=== PATIENT | female | born 1990 | race Caucasian/White ===

== ENCOUNTER 2017-04-17 21:03 | Inpatient (IN) | payer SELFPAY ==
[2017-04-18] MEDS ORDERED: fentaNYL 100 MCG/2 ML SDV EPIDUR PRN (00:28)
[2017-04-18] MEDS ORDERED: Ondansetron 4 MG/2 ML SDV IVPUSH PRN (00:28)
[2017-04-18] MEDS ORDERED: ePHEDrine 50 MG/ML SDV IVPUSH PRN (00:28)
[2017-04-18] MEDS ORDERED: Oxytocin/Lactated Ringers 10 UNIT/1,000 ML BAG IV SCH (00:30)
[2017-04-18] MEDS ORDERED: Bupivacaine/fentaNYL/NS 100 ML Bag EPIDUR SCH (00:30)
--- NOTE | 2017-04-18 00:30 | PCM.PREANE ---
Preanesthetic Assessment - Anesthesia/Transfusion/Family Hx Anesthesia History: Prior Anesthesia Without Reaction Family History of Anesthesia Reaction: No Transfusion History: No Prior Transfusion(s) Intubation History: Unknown - Review of Systems General: No Symptoms Pulmonary: No Symptoms Cardiovascular: No Symptoms Gastrointestinal: No Symptoms (GERD) Neurological: No Symptoms Other: Reports: None, Easy Bruising - Physical Assessment NPO Status Date: 04/18/17 NPO Status Time: 00:01 Pulse: 99 O2 Sat by Pulse Oximetry: 98 Respiratory Rate: 12 Blood Pressure: 118/78 Temperature: 37.0 C Height: 1.55 m Weight: 70.942 kg ASA Class: 2 Mental Status: Alert & Oriented x3 Airway Class: Mallampati = 2 Dentition: Reports: Normal Dentition, Caries Thyro-Mental Finger Breadths: 3 Mouth Opening Finger Breadths: 3 ROM/Head Extension: Full Lungs: Clear to Auscultation, Normal Respiratory Effort Cardiovascular: Regular Rate, Regular Rhythm, No Murmurs - Lab Values: Labs reviewed and noted and acceptable range to proceed with epidural. ( Platelets = 263,000) - Allergies Allergies/Adverse Reactions: Allergies Allergy/AdvReac Type Severity Reaction Status Date / Time No Known Allergies Allergy Verified 07/20/14 22:24 - Anesthesia Plan Pre-Op Medication Ordered: None - Acknowledgements Anesthesia Type Planned: Epidural Pt an Appropriate Candidate for the Planned Anesthesia: Yes Alternatives and Risks of Anesthesia Discussed w Pt/Guardian: Yes Pt/Guardian Understands and Agrees with Anesthesia Plan: Yes PreAnesthesia Questionnaire - SUBSTANCE USE Smoking Status *Q: Never Smoker Second Hand Smoke Exposure: No Days Per Week of Alcohol Use: 0 Recreational Drug Use History: No - HOME MEDS Home Medications: Home Meds Vit No.129/Iron/FA [ Tablet] 1 each PO DAILY 03/15/17 [History] - CURRENT (IN HOUSE) MEDS Current Meds: Current Medications Ephedrine Sulfate (Ephedrine Sulfate) 5 mg IVPUSH ASDIRECTED PRN PRN Reason: Hypotension Fentanyl (Sublimaze) 100 mcg EPIDUR Q3H PRN PRN Reason: Pain Fentanyl/Bupivacaine HCl (Fentanyl/Bupivacaine/Ns 2 Mcg-0.125% 100 Ml) 100 ml EPIDUR ASDIRECTED RAOUL Lactated Ringer's (Ringers, Lactated) 1,000 mls @ 100 mls/hr IV ASDIRECTED RAOU[facility] Oxytocin/Lactated Ringer's (Pitocin In Lr 10 Units/1,000 Ml) 10 unit in 1,000 mls @ 500 mls/hr IV ASDIRECTED [facility] Ondansetron HCl (Zofran) 4 mg IVPUSH ONETIME PRN PRN Reason: Nausea/Vomiting
[2017-04-18] MEDS: Lactated Ringers 1,000 ML IV SCH ×3 (00:58→02:19)
--- NOTE | 2017-04-18 04:34 | PCM.LDHP ---
L&D History of Present Illness - General Date of Service: 04/17/17 Admit Problem/Dx: Patient Status Order with Admit Dx/Problem 04/18/17 00:17 Patient Status [ADT] Routine Admission Diagnosis/Problem Admission Diagnosis/Problem Source of Information: Care Home Records - History of Present Illness Introduction:: 26 year old at 38w4d here with painful contractions and some bloody show. Cervical change from 3 in clinic to 4 here and then 5 cm. Active labor. PNC with myself without complications. 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 & Family History - Family History Family Medical History: Noncontributory - Tobacco Use Smoking Status *Q: Never Smoker Second Hand Smoke Exposure: No - Caffeine Use Caffeine Use: Reports: None - Alcohol Use Days Per Week of Alcohol Use: 0 - Recreational Drug Use Recreational Drug Use: No H&P Review of Systems - Review of Systems: Review Of Systems: See Below General: Reports: No Symptoms HEENT: Reports: No Symptoms Pulmonary: Reports: No Symptoms Cardiovascular: Reports: No Symptoms Gastrointestinal: Reports: No Symptoms Genitourinary: Denies: Dysuria, Frequency Musculoskeletal: Reports: No Symptoms Skin: Reports: No Symptoms Psychiatric: Reports: No Symptoms Neurological: Reports: No Symptoms Hematologic/Lymphatic: Reports: No Symptoms Immunologic: Reports: No Symptoms L&D Exam - Exam Exam: See Below - Vital Signs Vital Signs: Last Vital Signs Temp 37.0 C 04/18/17 00:59 Pulse 99 04/18/17 00:59 Resp 12 04/18/17 00:59 BP 118/78 04/18/17 00:59 Pulse Ox 98 04/18/17 00:59 Weight: 70.942 kg - OB Specific Contraction Intensity: Moderate to Strong Movement: Active Heart Tones: Present Heart Rate (FHR) Variability: Moderate (6-25 bmp) Presentation: Vertex - Nolasco Score Nolasco Score Cervix Position: Anterior Nolasco Score Consistency: Soft Nolasco Score Dilation: > 5 cm Nolasco Score 's Station: -2 - Exam General: Alert, Oriented HEENT: PERRLA, Conjunctiva Clear, EACs Clear, EOMI, Hearing Intact, Mucosa Moist & [place], Nares Patent, Normal Nasal Septum, Posterior Pharynx Clear, TMs Clear Neck: Supple, Trachea Midline Lungs: Clear to Auscultation, Normal Respiratory Effort Cardiovascular: Regular Rate, Regular Rhythm GI/Abdominal Exam: Normal Bowel Sounds, Soft, Non-Tender, No Organomegaly, No Distention, No Abnormal Bruit, No Mass, Pelvis Stable Genitourinary: Normal external exam, Normal bimanual exam, Normal speculum exam Back Exam: Normal Inspection, Full Range of Motion Extremities: Normal Inspection, Normal Range of Motion, Non-Tender, No Pedal Edema, Normal Capillary Refill Skin: Warm, Dry, Intact Neurological: Cranial Nerves Intact, Reflexes Equal Bilateral Psychiatric: Alert, Normal Affect, Normal Mood - Patient Data Lab Results Last 24 hrs: Laboratory Results - last 24 hr 04/18/17 Range/Units 00:33 WBC 12.19 H (3.98-10.04) K/mm3 RBC 4.01 (3.98-5.22) M/mm3 Hgb 12.5 (11.2-15.7) gm/L Hct 36.9 (34.1-44.9) % MCV 92.0 (79.4-94.8) fl MCH 31.2 (25.6-32.2) pg MCHC 33.9 (32.2-35.5) g/dl RDW Std Deviation 47.1 H (36.4-46.3) fL Plt Count 263 (182-369) K/mm3 MPV 10.2 (9.4-12.3) fl Neut % (Auto) 74.3 H (34.0-71.1) % Lymph % (Auto) 18.0 L (19.3-51.7) % [place] % (Auto) 6.6 (4.7-12.5) % Eos % (Auto) 0.7 (0.7-5.8) Baso % (Auto) 0.2 (0.1-1.2) % Neut # (Auto) 9.06 H (1.56-6.13) K/mm3 Lymph # (Auto) 2.19 (1.18-3.74) K/mm3 [place] # (Auto) 0.81 H (0.24-0.36) K/mm3 Eos # (Auto) 0.08 (0.04-0.36) K/mm3 Baso # (Auto) 0.03 (0.01-0.08) K/mm3 Result Diagrams: 04/18/17 00:33 Problem List Initiated/Reviewed/Updated: Yes Orders Last 24hrs: Active Orders 24 hr Category Date Time Status Patient Status [ADT] Routine ADT 04/18/17 00:17 Active Activity as Tolerated [RC] PFP Care 04/18/17 00:17 Active Communication Order [RC] ASDIRECTED Care 04/18/17 00:17 Active Heart Tones [RC] ASDIRECTED Care 04/18/17 00:18 Active Notify Provider [RC] ASDIRECTED Care 04/18/17 00:28 Active Notify Provider [RC] PFP Care 04/18/17 00:17 Active Notify Provider [RC] PRN Care 04/18/17 00:17 Active Oxygen Therapy [RC] ASDIRECTED Care 04/18/17 00:28 Active Peripheral IV Care [RC] . DIRECTED Care 04/18/17 00:18 Active Pulse Oximetry [RC] ASDIRECTED Care 04/18/17 00:28 Active Vital Signs [RC] PER UNIT ROUTINE Care 04/18/17 00:17 Active Clear Liquid Diet [DIET] Diet 04/18/17 Breakfast Active Bupivacaine/fentaNYL/NS [fentaNYL/Bupivacaine/NS 2 MCG- Med 04/18/17 00:30 Active 0.125% 100 ML] 100 ml EPIDUR ASDIRECTED Lactated Ringers [Ringers, Lactated] 1,000 ml Med 04/18/17 00:30 Active IV ASDIRECTED Ondansetron [Zofran] Med 04/18/17 00:28 Active 4 mg IVPUSH ONETIME PRN Oxytocin/Lactated Ringers [Pitocin in LR 10 Units/1,000 Med 04/18/17 00:30 Active ML] 10 unit in 1,000 ml IV ASDIRECTED ePHEDrine [ePHEDrine Sulfate] Med 04/18/17 00:28 Active 5 mg IVPUSH ASDIRECTED PRN fentaNYL [Sublimaze] Med 04/18/17 00:28 Active 100 mcg EPIDUR Q3H PRN Electronic Heart Tones Ext w TOCO [WOMSER] Oth 04/18/17 00:17 Ordered Routine Electronic Heart Tones Internal [WOMSER] Per Unit Oth 04/18/17 00:17 Ordered Routine Peripheral IV Insertion Adult [OM.PC] Routine Oth 04/18/17 00:17 Ordered Resuscitation Status Routine Resus Stat 04/18/17 00:17 Ordered Medication Orders Ephedrine Sulfate (Ephedrine Sulfate) 5 mg IVPUSH ASDIRECTED PRN PRN Reason: Hypotension Fentanyl (Sublimaze) 100 mcg EPIDUR Q3H PRN PRN Reason: Pain Last Admin: 04/18/17 01:02 Dose: 100 mcg Fentanyl/Bupivacaine HCl (Fentanyl/Bupivacaine/Ns 2 Mcg-0.125% 100 Ml) 100 ml EPIDUR ASDIRECTED [facility] Last Admin: 04/18/17 01:02 Dose: 100 ml Lactated Ringer's (Ringers, Lactated) 1,000 mls @ 100 mls/hr IV ASDIRECTED [facility] Last Admin: 04/18/17 02:19 Dose: 250 mls/hr Infusion: 04/18/17 02:19 Dose: 999 mls/hr Admin: 04/18/17 01:32 Dose: 999 mls/hr Infusion: 04/18/17 01:32 Dose: 999 mls/hr Infusion: 04/18/17 00:59 Dose: 999 mls/hr Admin: 04/18/17 00:58 Dose: 100 mls/hr Oxytocin/Lactated Ringer's (Pitocin In Lr 10 Units/1,000 Ml) 10 unit in 1,000 mls @ 500 mls/hr IV ASDIRECTED [facility] Ondansetron HCl (Zofran) 4 mg IVPUSH ONETIME PRN PRN Reason: Nausea/Vomiting Last Admin: 04/18/17 03:28 Dose: 4 mg Assessment/Plan Comment:: Term labor -Admit, cbc, IVF, epidural Anticipate AROM
--- NOTE | 2017-04-18 04:50 | PCM.SN ---
- Free Text/Narrative Note: 26 year old now3 female. of viable male 3400g apgars 8/9 over intact perineum at 0417. Placenta delivered spontaneously and intact. EBL 150
[2017-04-18] MEDS ORDERED: Lanolin 100% Cream 7 GM Tube TOP PRN (08:05)
[2017-04-18] MEDS ORDERED: Witch Hazel Medicated Pads 100/Jar TOP PRN (08:05)
[2017-04-18] MEDS ORDERED: Benzocaine/Menthol 20%-0.5% Spray 56 GM Canister TOP PRN (08:05)
[2017-04-18] MEDS ORDERED: Hydrocortisone Acetate 25 MG Supp RECTAL PRN (08:05)
--- NOTE | 2017-04-18 09:43 | PCM48HPAN ---
Post Anesthesia Note - EVALUATION WITHIN 48HRS OF ANESTHETIC Vital Signs in Normal Range: Yes Patient Participated in Evaluation: Yes Respiratory Function Stable: Yes Airway Patent: Yes Cardiovascular Function Stable: Yes Hydration Status Stable: Yes Pain Control Satisfactory: Yes Nausea and Vomiting Control Satisfactory: Yes Mental Status Recovered: Yes
[2017-04-18] MEDS: Ibuprofen 600 MG Tab PO PRN ×2 (11:34→17:16)
[2017-04-18] MEDS: Acetaminophen 325 MG Tab PO PRN ×2 (15:22→22:05)
[2017-04-18] MEDS ORDERED: Bupivacaine 0.25% 10 ML SDV ONE (22:22)
[2017-04-19 07:52] VITALS: BP 106/53
--- NOTE | 2017-04-19 09:03 | PCM.DCSUM1 ---
Discharge Summary - Discharge Data Discharge Date: 04/19/17 Discharge Disposition: Home, Self-Care 01 Condition: Good - Patient Summary/Data Hospital Course: Admitted for active labor. Progressed to complete and uncomplicated . Uncomplicated course. - Patient Instructions Diet: Usual Diet as Tolerated Activity: No Strenuous Activities Driving: May Drive Today Showering/Bathing: May Shower Wound/Incision Care: Keep Operative Site/Wound Site Clean and Dry Notify Provider of: Fever, Increased Pain, Swelling and Redness, Drainage, Nausea and/or Vomiting - Discharge Plan Home Medications: Home Meds Vit No.129/Iron/FA [ Tablet] 1 each PO DAILY 03/15/17 [History] Referrals: Elly Campbell MD [Primary Care Provider] - (6 weeks) - General Info Date of Service: 04/19/17 Functional Status: Reports: Pain Controlled - Review of Systems General: Reports: No Symptoms HEENT: Reports: No Symptoms Pulmonary: Reports: No Symptoms Cardiovascular: Reports: No Symptoms Gastrointestinal: Reports: No Symptoms Genitourinary: Reports: No Symptoms Musculoskeletal: Reports: No Symptoms Skin: Reports: No Symptoms Neurological: Reports: No Symptoms Psychiatric: Reports: No Symptoms - Patient Data Vitals - Most Recent: Last Vital Signs Temp 36.8 C 04/19/17 05:47 Pulse 73 04/19/17 05:47 Resp 20 04/19/17 05:47 BP 106/53 L 04/19/17 05:47 Pulse Ox 97 04/19/17 05:47 Weight - Most Recent: 70.942 kg I&O - Last 24 hours: Intake & Output 04/18/17 04/19/17 04/19/17 22:59 06:59 14:59 Intake Total 0 1 Balance 0 1 Lab Results - Last 24 hrs: Laboratory Results - last 24 hr 04/18/17 Range/Units 18:40 Blood Type O NEGATIVE Gel Antibody Screen Positive Screen 0 ros/5 flds - neg RhIG Candidate? Yes Rhogam Indicated Yes, baby rh pos H Med Orders - Current: Current Medications Acetaminophen (Tylenol) 650 mg PO Q6H PRN PRN Reason: Pain Last Admin: 04/18/17 22:05 Dose: 650 mg Benzocaine/Menthol (Dermoplast Pain Relief [place]) 0 gm TOP ASDIRECTED PRN PRN Reason: Perineal Comfort Measure Emollient Ointment (Lansinoh Hpa) 0 gm TOP ASDIRECTED PRN PRN Reason: Sore Nipples Hydrocortisone Acetate (Anucort-Hc) 25 mg RECTAL BID PRN PRN Reason: Hemorrhoid pain Ibuprofen (Motrin) 600 mg PO Q6H PRN PRN Reason: Mild pain or fever Last Admin: 04/18/17 17:16 Dose: 600 mg [place] (Tucks) 1 pad TOP ASDIRECTED PRN PRN Reason: Hemorrhoid pain Discontinued Medications Bupivacaine HCl (Sensorcaine-Mpf 0.25%) 10 ml .ROUTE .STK-MED ONE Stop: 04/18/17 22:23 Ephedrine Sulfate (Ephedrine Sulfate) 5 mg IVPUSH ASDIRECTED PRN PRN Reason: Hypotension Fentanyl (Sublimaze) 100 mcg EPIDUR Q3H PRN PRN Reason: Pain Last Admin: 04/18/17 01:02 Dose: 100 mcg Fentanyl/Bupivacaine HCl (Fentanyl/Bupivacaine/Ns 2 Mcg-0.125% 100 Ml) 100 ml EPIDUR ASDIRECTED [facility] Last Admin: 04/18/17 01:02 Dose: 100 ml Lactated Ringer's (Ringers, Lactated) 1,000 mls @ 100 mls/hr IV ASDIRECTED [facility] Last Admin: 04/18/17 02:19 Dose: 250 mls/hr Oxytocin/Lactated Ringer's (Pitocin In Lr 10 Units/1,000 Ml) 10 unit in 1,000 mls @ 500 mls/hr IV ASDIRECTED [facility] Ondansetron HCl (Zofran) 4 mg IVPUSH ONETIME PRN PRN Reason: Nausea/Vomiting Last Admin: 04/18/17 03:28 Dose: 4 mg - Exam General: Reports: Alert, Oriented HEENT: Reports: Pupils Equal, Pupils Reactive, EOMI, Mucous Membr. Moist/[place] Neck: Reports: Supple Lungs: Reports: Clear to Auscultation, Normal Respiratory Effort Cardiovascular: Reports: Regular Rate, Regular Rhythm GI/Abdominal Exam: Normal Bowel Sounds, Soft, Non-Tender, No Organomegaly, No Distention, No Abnormal Bruit, No Mass, Pelvis Stable Back Exam: Reports: Normal Inspection, Full Range of Motion Extremities: Normal Inspection, Normal Range of Motion, Non-Tender, No Pedal Edema, Normal Capillary Refill Skin: Reports: Warm, Dry, Intact Wound/Incisions: Reports: Healing Well Neurological: Reports: No New Focal Deficit Psy/Mental Status: Reports: Alert, Normal Affect, Normal Mood *Q Meaningful Use (DIS) - VTE *Q VTE Criteria *Q: - Stroke *Q Stroke Criteria *Q: - AMI *Q AMI Criteria *Q:
== END 2017-04-19 11:45 | disposition home or self-care (01) | DRG 775 ==
LOC: JD.OBCHECK 21:03 → JD.OB 21:08 → JD.OBCHECK 04-18 00:33 → JD.OB 04-18 00:34 → OBSVTOIN 04-18 04:17
PROVIDERS: ADMIT Obstetrics & Gynecology; ATTEND Obstetrics & Gynecology
PROC: 10E0XZZ Delivery of Products of Conception, External Approach (ICD-10-PCS; principal; 2017-04-18)
PROC: 10907ZC Drainage of Amniotic Fluid, Therapeutic from Products of Conception, Via Natural or Artificial Opening (ICD-10-PCS; 2017-04-18)
PROC: 00HU33Z Insertion of Infusion Device into Spinal Canal, Percutaneous Approach (ICD-10-PCS; 2017-04-18)
PROC: 3E0R3CZ (ICD-10-PCS; 2017-04-18)
DX: O80 Encounter for full-term uncomplicated delivery (principal); Z3A.39 39 weeks gestation of pregnancy; Z37.0 Single live birth
CPT/HCPCS: 01967; 36415; 85025; 85461; 86850; 86870; 86900; 86901; A9270-GY; J2405; J2790; J3010; J7120

== ENCOUNTER 2019-11-30 18:55 | Emergency (ER) | payer SELFPAY ==
[2019-11-30 19:07] VITALS: BP 126/82; PULSE 84
[2019-11-30] MEDS ORDERED: Lidocaine 1% 10 ML MDV INJECT ONE (19:08)
[2019-11-30] MEDS ORDERED: Diphtheria,Pertussis(Acell),Tetanus Vaccine 0.5 ML Syringe IM ONE (20:09)
--- NOTE | 2019-11-30 20:12 | EDM.PDOC ---
ED HPI GENERAL MEDICAL PROBLEM - General Chief Complaint: Laceration Stated Complaint: LACERATION TO FINGER Time Seen by Provider: 11/30/19 19:04 Source of Information: Reports: Patient History Limitations: Reports: No Limitations - History of Present Illness INITIAL COMMENTS - FREE TEXT/NARRATIVE: Patient is a 29-year-old female who presents with complaints of a laceration to the tip of her left middle finger. States she was cutting bread and she did not move her finger out of the way and cut it with a bread knife. She is unsure of when her last tetanus vaccination was. Left Finger-Middle Pain Score (Numeric/FACES): 9 - Related Data Allergies Allergy/AdvReac Type Severity Reaction Status Date / Time No Known Allergies Allergy Verified 07/20/14 22:24 Home Meds: Home Meds . 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 ED EXAM, SKIN/RASH Exam: See Below Exam Limited By: No Limitations General Appearance: Alert, WD/WN, No Apparent Distress Respiratory/Chest: No Respiratory Distress, Lungs Clear, Normal Breath Sounds, No Accessory Muscle Use, Chest Non-Tender Cardiovascular: Normal Peripheral Pulses, Regular Rate, Rhythm, No Edema, No Gallop, No JVD, No Murmur, No Rub Skin: Other (1 cm U-shaped laceration to the tip of the left middle finger. Mild bleeding noted.) ED SKIN PROCEDURES - Laceration/Wound Repair Left Distal Digit - 3rd (Middle) Appearance: Subcutaneous Distal NVT: Neuro & Vascular Intact Anesthetic Type: Local Local Anesthesia - Lidocaine (Xylocaine): 1% Plain Local Anesthetic Volume: 2cc Skin Prep: Chlorhexidine (Hibiciens), Providone-Iodine (Betadine), Saline Exploration/Debridement/Repair: Wound Explored, Multiple Flaps Aligned Closed with: Sutures Lac/Wound length In cm: 1 Suture Size: 4-0 # of Sutures: 3 Suture Type: Nylon Sterile Dressing Applied: Provider Tetanus Status Addressed: Yes Complications: Yes Course - Vital Signs Last Recorded V/S: Last Vital Signs Temp 98.3 F 11/30/19 19:05 Pulse 84 11/30/19 19:05 Resp 20 11/30/19 19:05 BP 126/82 11/30/19 19:05 Pulse Ox 98 11/30/19 19:05 - Orders/Labs/Meds Meds: Medications Discontinued Medications Generic Name Dose Route Start Last Admin Trade Name Paty PRN Reason Stop Dose Admin Lidocaine HCl 10 ml 11/30/19 19:08 11/30/19 19:24 Xylocaine 1% INJECT 11/30/19 19:09 10 ml ONETIME ONE Administration Departure - Departure Time of Disposition: 20:11 Disposition: Home, Self-Care 01 Condition: Good Clinical Impression: Finger laceration Qualifiers: Encounter type: initial encounter Finger: middle finger Damage to nail status: without damage Foreign body presence: without foreign body Laterality: left Qualified Code(s): S61.213A - Laceration without foreign body of left middle finger without damage to nail, initial encounter - Discharge Information Instructions: Laceration Care, Adult, Sutures, [place], or Adhesive Wound Closure, [id number] Referrals: PCP,None [Primary Care Provider] - Additional Instructions: You were seen in the emergency department today for a laceration to your left middle finger. The wound was cleaned and closed with 3 sutures. It should be kept clean and dry. You may wash it twice daily with normal soap and water. You may shower as normal. Do not submerge your hand in water. Watch for signs of infection including increased redness, swelling, purulent drainage. If these should occur, he should be seen in the clinic or return to ER as needed. I would recommend that you call to schedule a nurse visit to have the sutures removed in 7 days. You did receive a tetanus vaccination today so you are up-to -date for 10 years. Sepsis Event Note - Evaluation Sepsis Screening Result: No Definite Risk - Focused Exam Vital Signs: Vital Signs Temp Pulse Resp BP Pulse Ox 11/30/19 19:05 98.3 F 84 20 126/82 98 Date Exam was Performed: 11/30/19 Time Exam was Performed: 20:09
== END 2019-11-30 20:37 | disposition home or self-care (01) ==
LOC: JD.ED 18:55
DX: S61.213A Laceration without foreign body of left middle finger without damage to nail, initial encounter (principal); Z23 Encounter for immunization; W26.0XXA Contact with knife, initial encounter
CPT/HCPCS: 12001; 90471; 90715; 99282; J2001

== ENCOUNTER 2021-03-09 07:06 | Inpatient (IN) | payer BC ==
[2021-03-09] MEDS ORDERED: Nalbuphine 10 MG/1 ML Vial IVPUSH PRN (07:15)
[2021-03-09] MEDS ORDERED: Oxytocin/Lactated Ringers 10 UNIT/1,000 ML BAG IV SCH ×2 (07:15)
[2021-03-09] MEDS ORDERED: Ondansetron 4 MG/2 ML SDV IVPUSH PRN ×2 (07:15→09:26)
[2021-03-09] MEDS ORDERED: Sodium Chloride 0.9% 10 ML Syringe FLUSH PRN (07:15)
[2021-03-09] MEDS: Lactated Ringers 1,000 ML IV SCH ×3 (07:59→11:31)
[2021-03-09] MEDS ORDERED: ePHEDrine 50 MG/ML SDV IVPUSH PRN (09:26)
[2021-03-09] MEDS ORDERED: fentaNYL 100 MCG/2 ML SDV EPIDUR PRN (09:26)
[2021-03-09] MEDS ORDERED: Bupivacaine/fentaNYL/NS 100 ML Bag EPIDUR SCH (09:30)
--- NOTE | 2021-03-09 09:30 | PCM.PREANE ---
Preanesthetic Assessment - Procedure Proposed Procedure: Epidural - Anesthesia/Transfusion/Family Hx Anesthesia History: Prior Anesthesia Without Reaction Family History of Anesthesia Reaction: No Transfusion History: No Prior Transfusion(s) Intubation History: Unknown - Review of Systems General: No Symptoms Pulmonary: No Symptoms Cardiovascular: No Symptoms Gastrointestinal: No Symptoms (GERD), Constipation (with ) Neurological: Numbness (Right leg numb with baby on nerve.) Other: Reports: None - Physical Assessment NPO Status Date: 03/09/21 NPO Status Time: 07:30 Vital Signs: Last Vital Signs Temp 36.5 C 03/09/21 07:15 Pulse 108 H 03/09/21 07:15 Resp 14 03/09/21 07:15 BP 116/80 03/09/21 07:15 Pulse Ox 100 03/09/21 07:15 Height: 1.55 m Weight: 72.121 kg ASA Class: 2 Mental Status: Alert & Oriented x3 Airway Class: Mallampati = 2 Dentition: Reports: Normal Dentition, Caries Thyro-Mental Finger Breadths: 3 Mouth Opening Finger Breadths: 3 ROM/Head Extension: Full Lungs: Clear to Auscultation, Normal Respiratory Effort Cardiovascular: Regular Rate, Regular Rhythm, No Murmurs - Lab Values: Laboratory Last Values WBC 9.97 K/mm3 (3.98-10.04) 03/09/21 07:37 RBC 3.83 M/mm3 (3.98-5.22) L 03/09/21 07:37 Hgb 10.5 gm/dl (11.2-15.7) L D 03/09/21 07:37 Hct 33.0 % (34.1-44.9) L 03/09/21 07:37 MCV 86.2 fl (79.4-94.8) D 03/09/21 07:37 MCH 27.4 pg (25.6-32.2) 03/09/21 07:37 MCHC 31.8 g/dl (32.2-35.5) L 03/09/21 07:37 RDW Std Deviation 46.0 fL (36.4-46.3) 03/09/21 07:37 Plt Count 345 K/mm3 (182-369) D 03/09/21 07:37 MPV 10.5 fl (9.4-12.3) 03/09/21 07:37 Neut % (Auto) 75.7 % (34.0-71.1) H 03/09/21 07:37 Lymph % (Auto) 17.8 % (19.3-51.7) L 03/09/21 07:37 [place] % (Auto) 5.5 % (4.7-12.5) 03/09/21 07:37 Eos % (Auto) 0.6 (0.7-5.8) L 03/09/21 07:37 Baso % (Auto) 0.2 % (0.1-1.2) 03/09/21 07:37 Neut # (Auto) 7.55 K/mm3 (1.56-6.13) H 03/09/21 07:37 Lymph # (Auto) 1.77 K/mm3 (1.18-3.74) 03/09/21 07:37 Gem # (Auto) 0.55 K/mm3 (0.24-0.36) H 03/09/21 07:37 Eos # (Auto) 0.06 K/mm3 (0.04-0.36) 03/09/21 07:37 Baso # (Auto) 0.02 K/mm3 (0.01-0.08) 03/09/21 07:37 SARS-CoV-2 RNA (NINI) Negative (NEGATIVE) 03/09/21 07:18 Above labs reviewed and noted and within acceptable ranges to proceed with epidural if desired. 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: - Infectious Disease History Infectious Disease History: Reports: Human Papilloma Virus (HPV) - Past Surgical History Female Surgical History: Reports: Other (See Below) Other Female Surgeries/Procedures: Colposcopy - SUBSTANCE USE Tobacco Use Status *Q: Never Tobacco User Second Hand Smoke Exposure: No Recreational Drug Use History: No - HOME MEDS Home Medications: Home Meds No122/Iron/Folic Acid [ Multi Tablet] 1 each PO DAILY 02/19/21 [History] - CURRENT (IN HOUSE) MEDS Current Meds: Current Medications Ephedrine Sulfate (Ephedrine 50 Mg/Ml Sdv) 5 mg IVPUSH ASDIRECTED PRN PRN Reason: Hypotension Fentanyl (Fentanyl 100 Mcg/2 Ml Sdv) 100 mcg EPIDUR Q3H PRN PRN Reason: Pain Fentanyl/Bupivacaine HCl (Bupivacaine/Fentanyl/Ns 100 Ml Bag) 100 ml EPIDUR ASDIRECTED [facility] Oxytocin/Lactated Ringer's (Pitocin In Lr 10 Units/1,000 Ml) 10 unit in 1,000 mls @ 12 mls/hr IV TITRATE RAOUL; Protocol Last Titration: 03/09/21 08:48 Dose: 4 munits/min, 24 mls/hr Documented by: Oxytocin/Lactated Ringer's (Pitocin In Lr 10 Units/1,000 Ml) 10 unit in 1,000 mls @ 500 mls/hr IV .CONTINUOUS RAOUL Lactated Ringer's (Ringers, Lactated) 1,000 mls @ 100 mls/hr IV ASDIRECTED [facility] Last Admin: 03/09/21 07:59 Dose: 100 mls/hr Documented by: Miscellaneous Medication (Phenylephrine Hcl In 0.9% Nacl 1 Mg/10 Ml Syringe) 0.1 mg IVPUSH Q10M PRN PRN Reason: Hypotension Nalbuphine HCl (Nalbuphine 10 Mg/1 Ml Vial) 10 mg IVPUSH Q2H PRN PRN Reason: Pain Ondansetron HCl (Ondansetron 4 Mg/2 Ml Sdv) 4 mg IVPUSH Q4H PRN PRN Reason: Nausea/Vomiting Ondansetron HCl (Ondansetron 4 Mg/2 Ml Sdv) 4 mg IVPUSH ONETIME PRN PRN Reason: Nausea/Vomiting Sodium Chloride (Sodium Chloride 0.9% 10 Ml Syringe) 10 ml FLUSH ASDIRECTED PRN PRN Reason: Keep Vein Open
--- NOTE | 2021-03-09 14:44 | PCM.LDHP ---
L&D History of Present Illness - General Date of Service: 03/09/21 Admit Problem/Dx: Patient Status Order with Admit Dx/Problem 03/09/21 07:15 Patient Status [ADT] Routine Admission Diagnosis/Problem Admission Diagnosis/Problem - History of Present Illness Introduction:: 30 at 39w here for induction of labor. PNC with myself without complications. Pain Score: 0 - Related Data Allergies/Adverse Reactions: Allergies Allergy/AdvReac Type Severity Reaction Status Date / Time adhesive Allergy Rash Verified 03/09/21 08:07 Home Medications: Home Meds No122/Iron/Folic Acid [ Multi Tablet] 1 each PO DAILY 02/19/21 [History] Past Medical History - Past Health History Medical/Surgical History: Denies Medical/Surgical History F[employer] History: Reports: - Infectious Disease History Infectious Disease History: Reports: Human Papilloma Virus (HPV) - Past Surgical History Female Surgical History: Reports: Other (See Below) Other Female Surgeries/Procedures: Colposcopy Social & Family History - Family History Family Medical History: No Pertinent Family History - Tobacco Use Tobacco Use Status *Q: Never Tobacco User Second Hand Smoke Exposure: No - Caffeine Use Caffeine Use: Reports: Soda - Recreational Drug Use Recreational Drug Use: No H&P Review of Systems - Review of Systems: Review Of Systems: See Below General: Reports: No Symptoms HEENT: Reports: No Symptoms Pulmonary: Reports: No Symptoms Cardiovascular: Reports: No Symptoms Gastrointestinal: Reports: No Symptoms Genitourinary: Reports: No Symptoms Musculoskeletal: Reports: No Symptoms Skin: Reports: No Symptoms Psychiatric: Reports: No Symptoms Neurological: Reports: No Symptoms Hematologic/Lymphatic: Reports: No Symptoms Immunologic: Reports: No Symptoms L&D Exam - Exam Exam: See Below - Vital Signs Vital Signs: Last Vital Signs Temp 36.5 C 03/09/21 07:15 Pulse 108 H 03/09/21 07:15 Resp 14 03/09/21 07:15 BP 116/80 03/09/21 07:15 Pulse Ox 100 03/09/21 07:15 Weight: 72.121 kg - OB Specific Contraction Intensity: Moderate Movement: Active Heart Tones: Present Heart Rate (FHR) Variability: Moderate (6-25 bpm) Presentation: Vertex - Nolasco Score Nolasco Score Cervix Position: Midposition Nolasco Score Consistency: Soft Nolasco Score Effacement: 51-70% Nolasco Score Dilation: 1-2 cm Nolasco Score 's Station: -2 Nolasco Score Total: 7 - Exam General: Alert, Oriented HEENT: PERRLA, Conjunctiva Clear, EACs Clear, EOMI, Hearing Intact, Mucosa Moist & [place], Nares Patent, Normal Nasal Septum, Posterior Pharynx Clear, TMs Clear Neck: Supple, Trachea Midline Lungs: Clear to Auscultation, Normal Respiratory Effort Cardiovascular: Regular Rate, Regular Rhythm GI/Abdominal Exam: Normal Bowel Sounds, Soft, Non-Tender, No Organomegaly, No Distention Genitourinary: Normal external exam Back Exam: Normal Inspection, Full Range of Motion Extremities: Normal Inspection, Normal Range of Motion, Non-Tender, No Pedal Edema, Normal Capillary Refill Skin: Warm, Dry, Intact Neurological: Cranial Nerves Intact, Reflexes Equal Bilateral Psychiatric: Alert, Normal Affect, Normal Mood - Patient Data Lab Results Last 24 hrs: Laboratory Results - last 24 hr 03/09/21 03/09/21 Range/Units 07:18 07:37 WBC 9.97 (3.98-10.04) K/mm3 RBC 3.83 L (3.98-5.22) M/mm3 Hgb 10.5 L D (11.2-15.7) gm/dl Hct 33.0 L (34.1-44.9) % MCV 86.2 D (79.4-94.8) fl MCH 27.4 (25.6-32.2) pg MCHC 31.8 L (32.2-35.5) g/dl RDW Std Deviation 46.0 (36.4-46.3) fL Plt Count 345 D (182-369) K/mm3 MPV 10.5 (9.4-12.3) fl Neut % (Auto) 75.7 H (34.0-71.1) % Lymph % (Auto) 17.8 L (19.3-51.7) % Dickens % (Auto) 5.5 (4.7-12.5) % Eos % (Auto) 0.6 L (0.7-5.8) Baso % (Auto) 0.2 (0.1-1.2) % Neut # (Auto) 7.55 H (1.56-6.13) K/mm3 Lymph # (Auto) 1.77 (1.18-3.74) K/mm3 Dickens # (Auto) 0.55 H (0.24-0.36) K/mm3 Eos # (Auto) 0.06 (0.04-0.36) K/mm3 Baso # (Auto) 0.02 (0.01-0.08) K/mm3 SARS-CoV-2 RNA (NINI) Negative (NEGATIVE) Result Diagrams: 03/09/21 07:37 Problem List Initiated/Reviewed/Updated: Yes Orders Last 24hrs: Active Orders 24 hr Category Date Time Status Patient Status [ADT] Routine ADT 03/09/21 07:15 Active Activity as Tolerated [RC] PFP Care 03/09/21 07:15 Active Communication Order [RC] ASDIRECTED Care 03/09/21 07:15 Active Heart Tones [RC] ASDIRECTED Care 03/09/21 07:16 Active Non Stress Test [RC] PER UNIT ROUTINE Care 03/09/21 07:15 Active Notify Provider [RC] ASDIRECTED Care 03/09/21 09:26 Active Notify Provider [RC] PFP Care 03/09/21 07:15 Active Notify Provider [RC] PRN Care 03/09/21 07:15 Active Oxygen Therapy [RC] ASDIRECTED Care 03/09/21 09:26 Active Peripheral IV Care [RC] . DIRECTED Care 03/09/21 07:16 Active Pulse Oximetry [RC] ASDIRECTED Care 03/09/21 09:26 Active Vital Signs [RC] PER UNIT ROUTINE Care 03/09/21 07:15 Active Regular Diet [DIET] Diet 03/09/21 Breakfast Active BLOOD BANK HOLD SPECIMEN [BBK] Stat Lab 03/09/21 07:15 Ordered RAPID PLASMA REAGIN,RPR [CHEM] Routine Lab 03/09/21 07:37 Received Bupivacaine/fentaNYL/NS [fentaNYL/Bupivacaine/NS 2 MCG- Med 03/09/21 09:30 Active 0.125% 100 ML] 100 ml EPIDUR ASDIRECTED Lactated Ringers [Ringers, Lactated] 1,000 ml Med 03/09/21 07:15 Active IV ASDIRECTED Nalbuphine [Nubain] Med 03/09/21 07:15 Active 10 mg IVPUSH Q2H PRN Ondansetron [Zofran] Med 03/09/21 09:26 Active 4 mg IVPUSH ONETIME PRN Ondansetron [Zofran] Med 03/09/21 07:15 Active 4 mg IVPUSH Q4H PRN Oxytocin/Lactated Ringers [Pitocin in LR 10 Units/1,000 Med 03/09/21 07:15 Active ML] 10 unit in 1,000 ml IV .CONTINUOUS Oxytocin/Lactated Ringers [Pitocin in LR 10 Units/1,000 Med 03/09/21 07:15 Active ML] 10 unit in 1,000 ml IV TITRATE Phenylephrine HCl In 0.9% NaCl [Phenylephrine 1 MG/10 Med 03/09/21 09:26 Active ML-NS] 0.1 mg IVPUSH Q10M PRN Sodium Chloride 0.9% [Saline Flush] Med 03/09/21 07:15 Active 10 ml FLUSH ASDIRECTED PRN ePHEDrine [ePHEDrine sulfate] Med 03/09/21 09:26 Active 5 mg IVPUSH ASDIRECTED PRN fentaNYL [Sublimaze] Med 03/09/21 09:26 Active 100 mcg EPIDUR Q3H PRN Electronic Heart Tones Ext w TOCO [WOMSER] Oth 03/09/21 07:15 Ordered Routine Electronic Heart Tones Internal [WOMSER] Per Unit Oth 03/09/21 07:15 Ordered Routine Peripheral IV Insertion Adult [OM.PC] Routine Oth 03/09/21 07:15 Ordered Resuscitation Status Routine Resus Stat 03/09/21 07:15 Ordered Medication Orders Ephedrine Sulfate (Ephedrine 50 Mg/Ml Sdv) 5 mg IVPUSH ASDIRECTED PRN PRN Reason: Hypotension Fentanyl (Fentanyl 100 Mcg/2 Ml Sdv) 100 mcg EPIDUR Q3H PRN PRN Reason: Pain Last Admin: 03/09/21 09:31 Dose: 100 mcg Documented by: JUAN Fentanyl/Bupivacaine HCl (Bupivacaine/Fentanyl/Ns 100 Ml Bag) 100 ml EPIDUR ASDIRECTED RAOUL Last Admin: 03/09/21 09:31 Dose: 100 ml Documented by: JUAN Oxytocin/Lactated Ringer's (Pitocin In Lr 10 Units/1,000 Ml) 10 unit in 1,000 mls @ 12 mls/hr IV TITRATE RAOUL; Protocol Last Titration: 03/09/21 11:15 Dose: 6 munits/min, 36 mls/hr Documented by: Titration: 03/09/21 08:48 Dose: 4 munits/min, 24 mls/hr Documented by: Admin: 03/09/21 08:00 Dose: 2 munits/min, 12 mls/hr Documented by: JUAN Oxytocin/Lactated Ringer's (Pitocin In Lr 10 Units/1,000 Ml) 10 unit in 1,000 mls @ 500 mls/hr IV .CONTINUOUS RAOUL Lactated Ringer's (Ringers, Lactated) 1,000 mls @ 100 mls/hr IV ASDIRECTED RAOUL Last Admin: 03/09/21 11:31 Dose: 100 mls/hr Documented by: Infusion: 03/09/21 11:31 Dose: 100 mls/hr Documented by: Admin: 03/09/21 09:29 Dose: 100 mls/hr Documented by: Infusion: 03/09/21 09:29 Dose: 100 mls/hr Documented by: Admin: 03/09/21 07:59 Dose: 100 mls/hr Documented by: JUAN Miscellaneous Medication (Phenylephrine Hcl In 0.9% Nacl 1 Mg/10 Ml Syringe) 0.1 mg IVPUSH Q10M PRN PRN Reason: Hypotension Nalbuphine HCl (Nalbuphine 10 Mg/1 Ml Vial) 10 mg IVPUSH Q2H PRN PRN Reason: Pain Ondansetron HCl (Ondansetron 4 Mg/2 Ml Sdv) 4 mg IVPUSH Q4H PRN PRN Reason: Nausea/Vomiting Last Admin: 03/09/21 10:41 Dose: 4 mg Documented by: JUAN Ondansetron HCl (Ondansetron 4 Mg/2 Ml Sdv) 4 mg IVPUSH ONETIME PRN PRN Reason: Nausea/Vomiting Sodium Chloride (Sodium Chloride 0.9% 10 Ml Syringe) 10 ml FLUSH ASDIRECTED PRN PRN Reason: Keep Vein Open Assessment/Plan Comment:: 30 year old here for induction., Pitocin. Desires epidural. Anticipate
--- NOTE | 2021-03-09 14:48 | PCM.SN.2 ---
- Free Text/Narrative Note: Stage I - Patient presented for induction of labor. Pitocin. Epidural after 2 hours as very uncomfortable. SROM meconium stained fluid. Stage II - of viable male, weight 8#4oz, 8/9 APGARS at 1423. Head delivered in controlled manner over intact perineum. Tight nuchal cord. Body and shoulders atraumatically. Positive cry. Cord clamped and cut. 3v. Cord blood collected. Stage III - Placenta delivered spontaneous and intact. EBL 200. Small right upper labial laceration bleeding so suture x1 simple suture with 4-0 vicryl.
[2021-03-09] MEDS ORDERED: Acetaminophen 325 MG Tab PO PRN (15:49)
[2021-03-09] MEDS ORDERED: Benzocaine/Menthol 20%-0.5% Spray 56 GM Canister TOP PRN (15:49)
[2021-03-09] MEDS ORDERED: Witch Hazel Medicated Pads 40/Jar TOP PRN (15:49)
[2021-03-09] MEDS ORDERED: Docusate Sodium 100 MG Cap PO PRN (15:49)
[2021-03-09] MEDS ORDERED: Bupivacaine 0.25% 10 ML SDV ONE (17:00)
[2021-03-09] MEDS: Ibuprofen 600 MG Tab PO PRN (20:38)
[2021-03-10] MEDS: Ibuprofen 600 MG Tab PO PRN (03:06)
--- NOTE | 2021-03-10 07:47 | PCM.SN.2 ---
- Free Text/Narrative Note: Post Progress Note PPD #1 Subjective: Doing well overall. Ambulating without difficulty. Lochia minimal. Voiding without difficulty. Reports that she is passing flatus but has not had a bowel movement. Tolerating regular diet without nausea or vomiting. Pain controlled with oral medications. Bottlefeeding with minimal difficulty. Reports that she has not had any milk production at this time. Objective: Vitals: Vital Signs - 24 hr 03/09/21 03/10/21 20:22 03:01 Temperature 37.2 C 36.9 C Pulse, 93 87 Peripheral Respiratory 14 14 Rate Blood Pressure 118/68 98/67 O2 Sat by Pulse 98 98 Oximetry Physical Exam General: Alert and oriented, no acute distress Lungs: Clear to auscultation bilaterally Heart: Regular rate and rhythm Abdomen: Soft, minimal appropriate tenderness, non-distended, fundus midline, nontender, and at the umbilicus Extremities: No edema in bilateral lower extremities, no calf tenderness bilaterally Laboratory Results - last 24 hr 03/09/21 03/09/21 03/09/21 Range/Units 07:18 07:37 18:20 WBC 9.97 (3.98-10.04) K/mm3 RBC 3.83 L (3.98-5.22) M/mm3 Hgb 10.5 L D (11.2-15.7) gm/dl Hct 33.0 L (34.1-44.9) % MCV 86.2 D (79.4-94.8) fl MCH 27.4 (25.6-32.2) pg MCHC 31.8 L (32.2-35.5) g/dl RDW Std Deviation 46.0 (36.4-46.3) fL Plt Count 345 D (182-369) K/mm3 MPV 10.5 (9.4-12.3) fl Neut % (Auto) 75.7 H (34.0-71.1) % Lymph % (Auto) 17.8 L (19.3-51.7) % Bee % (Auto) 5.5 (4.7-12.5) % Eos % (Auto) 0.6 L (0.7-5.8) Baso % (Auto) 0.2 (0.1-1.2) % Neut # (Auto) 7.55 H (1.56-6.13) K/mm3 Lymph # (Auto) 1.77 (1.18-3.74) K/mm3 Bee # (Auto) 0.55 H (0.24-0.36) K/mm3 Eos # (Auto) 0.06 (0.04-0.36) K/mm3 Baso # (Auto) 0.02 (0.01-0.08) K/mm3 SARS-CoV-2 RNA (NINI) Negative (NEGATIVE) Blood Type O NEGATIVE Gel Antibody Screen Negative Screen 0 ros/5 flds - neg RhIG Candidate? Yes Rhogam Indicated Yes, baby rh pos H ASSESSMENT: 30-year-old female -0-0-4 s/p normal vaginal delivery PPD #1, complicated by anemia and Rh- status and has received RhoGam prior to discharge PLAN: Doing well Bottlefeeding with minimal difficulty. Assist as needed. States that she has not had any milk production at this time. Lochia minimal. Continue to monitor for appropriate lochia. Continue routine care Patient with O- blood type and with O+ blood type. She received RhoGam on PPD #0 Anticipate discharge home today Bryan Almonte MD 7:46 AM 03/10/2021
--- NOTE | 2021-03-10 08:08 | PCM.DCSUM1 ---
Discharge Summary - Hospital Course Free Text/Narrative:: Stage I - Patient presented for induction of labor. Pitocin. Epidural after 2 hours as very uncomfortable. SROM meconium stained fluid. Stage II - of viable male, weight 8#4oz, 8/9 APGARS at 1423. Head delivered in controlled manner over intact perineum. Tight nuchal cord. Body and shoulders atraumatically. Positive cry. Cord clamped and cut. 3v. Cord blood collected. Stage III - Placenta delivered spontaneous and intact. EBL 200. Small right upper labial laceration bleeding so suture x1 simple suture with 4-0 vicryl. Diagnosis: Stroke: No - Discharge Data Discharge Date: 03/10/21 Discharge Disposition: Home, Self-Care 01 Condition: Good - Referral to Home Health Primary Care Physician: Elly Campbell MD - Discharge Diagnosis/Problem(s) (1) 39 weeks gestation of SNOMED Code(s): 18946563 ICD Code: Z3A.39 - 39 WEEKS GESTATION OF Status: Acute Current Visit: Yes (2) Rh negative status during SNOMED Code(s): 450225309 ICD Code: O26.899 - OTH RELATED CONDITIONS, UNSPECIFIED TRIMESTER; Z67.91 - UNSPECIFIED BLOOD TYPE, RH NEGATIVE Status: Acute Current Visit: Yes (3) Anemia affecting in third trimester SNOMED Code(s): 35445610, 18477812 ICD Code: O99.013 - ANEMIA COMPLICATING , THIRD TRIMESTER Status: Acute Current Visit: Yes (4) Vaginal delivery SNOMED Code(s): 062573809 ICD Code: O80 - ENCOUNTER FOR FULL-TERM UNCOMPLICATED DELIVERY Status: Acute Current Visit: No - Patient Summary/Data Complications: None Consults: None Hospital Course: David Brenner was admitted for induction of labor. On admission her cervix was dilated to 1-2 cm. She was GBS negative. She was given pitocin for augmentation. She was given an epidural for anesthesia. She had spontaneous rupture of membranes with meconium stained fluid. She progressed to complete and began pushing. On 03/09/2021 she had a normal vaginal delivery of a live male at 14:23. Apgars of 8 and 9. Weight of 3750 g (8 pounds 4.3 ounces). Her course was uneventful. Her pain was well controlled and she had minimal lochia. She was ambulating, tolerating a regular diet and voiding normally. She was bottlefeeding with minimal difficulty. She was not having any milk production at time of discharge. She was afebrile and her hematocrit was 33.0 on admission. She desired to be discharged home in the afternoon of PPD #1. Her blood type is O- and infant has O+ blood type. She received RhoGam in the evening of PPD #0. - Patient Instructions Diet: Regular Diet as Tolerated Activity: Apply Ice, As Tolerated Activity, Other: Nothing in the vagnia for 6 weeks. Driving: May Drive Today Showering/Bathing: May Shower Notify Provider of: Fever, Increased Pain, Swelling and Redness, Drainage, Nausea and/or Vomiting Other/Special Instructions: Please contact your physician's office if you have heavy vaginal bleeding enough to soak a pad in less than an hour for several hours. Monitor for any signs of an infection in the breasts with severe pain or redness of the breast. - Discharge Plan *PRESCRIPTION DRUG MONITORING PROGRAM REVIEWED*: Not Applicable *COPY OF PRESCRIPTION DRUG MONITORING REPORT IN PATIENT ATTILA: Not Applicable Home Medications: Home Meds No122/Iron/Folic Acid [ Multi Tablet] 1 each PO DAILY 02/19/21 [History] Acetaminophen [Tylenol] 650 mg PO Q6H PRN #60 tablet 03/10/21 [Rx] Benzocaine/Menthol [Dermoplast Pain Relief Turpin] 1 spray TOP ASDIRECTED PRN canister 03/10/21 [Rx] Docusate Sodium [Colace] 100 mg PO BID PRN cap 03/10/21 [Rx] Ibuprofen [Motrin] 600 mg PO Q6H PRN #60 tablet 03/10/21 [Rx] witch Estevan [Tucks] 1 pad TOP ASDIRECTED PRN pad 03/10/21 [Rx] Patient Handouts: Care of a Perineal Tear, Care After Vaginal Delivery Referrals: Elly Campbell MD [Primary Care Provider] - (Follow-up in 4-6 weeks for routine visit or earlier as needed.) - Discharge Summary/Plan Comment DC Time >30 min.: No - Patient Data Vitals - Most Recent: Last Vital Signs Temp 36.9 C 03/10/21 03:01 Pulse 87 03/10/21 03:01 Resp 14 03/10/21 03:01 BP 98/67 03/10/21 03:01 Pulse Ox 98 03/10/21 03:01 Weight - Most Recent: 72.121 kg I&O - Last 24 hours: Intake & Output 03/09/21 03/10/21 03/10/21 22:59 06:59 14:59 Intake Total 4002 Output Total 179 Balance 3823 Lab Results - Last 24 hrs: Laboratory Results - last 24 hr 03/09/21 03/09/21 Range/Units 07:18 18:20 SARS-CoV-2 RNA (NINI) Negative (NEGATIVE) Blood Type O NEGATIVE Gel Antibody Screen Negative Screen 0 ros/5 flds - neg RhIG Candidate? Yes Rhogam Indicated Yes, baby rh pos H Med Orders - Current: Current Medications Acetaminophen (Acetaminophen 325 Mg Tab) 650 mg PO Q4H PRN PRN Reason: mild pain or fever Benzocaine/Menthol (Benzocaine/Menthol 20%-0.5% Turpin 56 Gm Canister) 0 gm TOP ASDIRECTED PRN PRN Reason: Perineal Comfort Measure Last Admin: 03/09/21 16:28 Dose: 1 can Documented by: Docusate Sodium (Docusate Sodium 100 Mg Cap) 100 mg PO BID PRN PRN Reason: Constipation Ibuprofen (Ibuprofen 600 Mg Tab) 600 mg PO Q4H PRN PRN Reason: Mild pain or fever Last Admin: 03/10/21 03:06 Dose: 600 mg Documented by: Lois Saba (Lois Saba Medicated Pads 40/Jar) 1 pad TOP ASDIRECTED PRN PRN Reason: Perineal Comfort Measure Last Admin: 03/09/21 16:29 Dose: 1 tub Documented by: Discontinued Medications Ephedrine Sulfate (Ephedrine 50 Mg/Ml Sdv) 5 mg IVPUSH ASDIRECTED PRN PRN Reason: Hypotension Fentanyl (Fentanyl 100 Mcg/2 Ml Sdv) 100 mcg EPIDUR Q3H PRN PRN Reason: Pain Last Admin: 03/09/21 09:31 Dose: 100 mcg Documented by: Fentanyl/Bupivacaine HCl (Bupivacaine/Fentanyl/Ns 100 Ml Bag) 100 ml EPIDUR ASDIRECTED RAOUL Last Admin: 03/09/21 09:31 Dose: 100 ml Documented by: Oxytocin/Lactated Ringer's (Pitocin In Lr 10 Units/1,000 Ml) 10 unit in 1,000 mls @ 12 mls/hr IV TITRATE RAOUL; Protocol Last Titration: 03/09/21 11:15 Dose: 6 munits/min, 36 mls/hr Documented by: Oxytocin/Lactated Ringer's (Pitocin In Lr 10 Units/1,000 Ml) 10 unit in 1,000 mls @ 500 mls/hr IV .CONTINUOUS RAOUL Lactated Ringer's (Ringers, Lactated) 1,000 mls @ 100 mls/hr IV ASDIRECTED RAOUL Last Admin: 03/09/21 11:31 Dose: 100 mls/hr Documented by: Miscellaneous Medication (Phenylephrine Hcl In 0.9% Nacl 1 Mg/10 Ml Syringe) 0.1 mg IVPUSH Q10M PRN PRN Reason: Hypotension Nalbuphine HCl (Nalbuphine 10 Mg/1 Ml Vial) 10 mg IVPUSH Q2H PRN PRN Reason: Pain Ondansetron HCl (Ondansetron 4 Mg/2 Ml Sdv) 4 mg IVPUSH Q4H PRN PRN Reason: Nausea/Vomiting Last Admin: 03/09/21 10:41 Dose: 4 mg Documented by: Ondansetron HCl (Ondansetron 4 Mg/2 Ml Sdv) 4 mg IVPUSH ONETIME PRN PRN Reason: Nausea/Vomiting Sodium Chloride (Sodium Chloride 0.9% 10 Ml Syringe) 10 ml FLUSH ASDIRECTED PRN PRN Reason: Keep Vein Open
[2021-03-10 15:43] VITALS: BP 113/70; PULSE 94
== END 2021-03-10 15:38 | disposition home or self-care (01) | DRG 560 ==
LOC: JD.OBCHECK 07:06 → JD.OB 07:17 → OBSVTOIN 14:23 → JD.OB 14:24
PROVIDERS: ADMIT Obstetrics & Gynecology; ATTEND Obstetrics & Gynecology
PROC: 3E0234Z Introduction of Serum, Toxoid and Vaccine into Muscle, Percutaneous Approach (ICD-10-PCS; principal; 2021-03-09)
PROC: 0HQ9XZZ Repair Perineum Skin, External Approach (ICD-10-PCS; principal; 2021-03-09)
PROC: 10E0XZZ Delivery of Products of Conception, External Approach (ICD-10-PCS; principal; 2021-03-09)
PROC: 3E0R3BZ Introduction of Anesthetic Agent into Spinal Canal, Percutaneous Approach (ICD-10-PCS; principal; 2021-03-09)
DX: O69.1XX0 Labor and delivery complicated by cord around neck, with compression, not applicable or unspecified (principal); Z3A.39 39 weeks gestation of pregnancy; Z37.0 Single live birth; O70.0 First degree perineal laceration during delivery; O77.0 Labor and delivery complicated by meconium in amniotic fluid; O26.893 Other specified pregnancy related conditions, third trimester; Z67.41 Type O blood, Rh negative; Z20.822 Contact with and (suspected) exposure to COVID-19
CPT/HCPCS: 01967; 36415; 51702; 59025; 59409; 85025; 85461; 86592; 86850; 86900; 86901; A9270-GY; J2405; J2590; J2790; J3010; J3490; J7120; U0002

== ENCOUNTER 2021-06-19 19:23 | Emergency (ER) | payer BC ==
[2021-06-19 19:52] VITALS: BP 144/94; PULSE 96
[2021-06-19] MEDS ORDERED: Ondansetron 4 MG/2 ML SDV IVPUSH ONE (20:16)
[2021-06-19] MEDS ORDERED: Morphine 4 MG/ML Syringe IVPUSH ONE (20:16)
[2021-06-19] MEDS ORDERED: Sodium Chloride 0.9% 10 ML SDV FLUSH ONE (20:40)
[2021-06-19] MEDS ORDERED: Iopamidol 612 MG/ML 100 ML Bottle IVPUSH ONE (20:40)
--- NOTE | 2021-06-19 20:50 | EDM.PDOC ---
ED [facility] GENERAL MEDICAL PROBLEM - General Chief Complaint: Abdominal Pain Stated Complaint: R SIDE ABD PAIN Time Seen by Provider: 06/19/21 19:50 Source of Information: Reports: Patient History Limitations: Reports: No Limitations - History of Present Illness INITIAL COMMENTS - FREE TEXT/NARRATIVE: Patient is a 30-year-old female who is 3 months presenting with a chief complaint of right lower quadrant abdominal pain. Pain started tonight while she was making dinner. Patient reports the pain is constant and steady. No radiation of pain. Nothing seems to make symptoms better or worse. Patient reports associated nausea without vomiting. Denies any fevers, chills, dysuria, hematuria, vaginal discharge. Patient's delivery 3 months ago was vaginally and uncomplicated. Patient is not currently breast-feeding. She has not taken any medications prior to arrival. Right Lower Abdomen Pain Score (Numeric/FACES): 7 - Related Data Allergies Allergy/AdvReac Type Severity Reaction Status Date / Time adhesive Allergy Severe Rash Verified 06/19/21 19:56 Home Meds: Home Meds . 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: - Infectious Disease History Infectious Disease History: Reports: Human Papilloma Virus (HPV) - Past Surgical History Female Surgical History: Reports: Other (See Below) Other Female Surgeries/Procedures: Colposcopy Social & Family History - Family History Family Medical History: No Pertinent Family History - Tobacco Use Tobacco Use Status *Q: Never Tobacco User - Caffeine Use Caffeine Use: Reports: Soda - Recreational Drug Use Recreational Drug Use: No ED ROS GENERAL - Review of Systems Review Of Systems: See Below Free Text/Narrative/Comment: In addition to that documented in the HPI above, the additional ROS was obtained: Constitutional: Denies fevers or chills Eyes: Denies vision changes ENMT: Denies sore throat CV: Denies chest pain Resp: Denies SOB GI: Denies vomiting or diarrhea : Denies painful urination MSK: Denies recent trauma Skin: Denies new rashes Neuro: Denies new numbness or tingling or weakness Endocrine: Denies unexpected weight loss Heme: Denies bleeding disorders ED EXAM, GI/ABD - Physical Exam Exam: See Below Text/Narrative:: I have reviewed the triage vital signs Const: Well nourished, well developed, appears stated age. Otherwise, nontoxic in appearance. Eyes: Pupils Equal and reactive to light bilaterally, no conjunctival injection HENT: No signs of trauma or swelling, Neck supple without meningismus CV: Regular Rate Rhythm, Warm, well-perfused extremities RESP: Unlabored respiratory effort GI: Exquisitely tender in the right lower quadrant. No guarding or rebound. No distention. MSK: No gross deformities appreciated Skin: Warm, dry. No rashes Neuro: Alert, supervisor litharge II-XII grossly intact. Sensation and motor function of extremities grossly intact. Psych: Appropriate mood and affect. Course - Vital Signs Last Recorded V/S: Last Vital Signs Temp 37.3 C 06/19/21 19:51 Pulse 96 06/19/21 19:51 Resp 20 06/19/21 19:51 BP 144/94 H 06/19/21 19:51 Pulse Ox 99 06/19/21 19:51 - Orders/Labs/Meds Orders: Active Orders 24 hr Category Date Time Status Abdomen Pelvis w Cont [CT] Stat Exams 06/19/21 20:15 Taken Pelvis Non OB Comp [US] Stat Exams 06/19/21 21:00 Taken Labs: Laboratory Tests 06/19/21 06/19/21 06/19/21 Range/Units 20:15 20:55 20:55 WBC 10.66 H (3.98-10.04) K/mm3 RBC 4.34 (3.98-5.22) M/mm3 Hgb 12.2 D (11.2-15.7) gm/dl Hct 37.5 (34.1-44.9) % MCV 86.4 (79.4-94.8) fl MCH 28.1 (25.6-32.2) pg MCHC 32.5 (32.2-35.5) g/dl RDW Std Deviation 47.6 H (36.4-46.3) fL Plt Count 347 (182-369) K/mm3 MPV 10.4 (9.4-12.3) fl Neut % (Auto) 67.3 (34.0-71.1) % Lymph % (Auto) 22.8 (19.3-51.7) % [place] % (Auto) 8.5 (4.7-12.5) % Eos % (Auto) 0.8 (0.7-5.8) Baso % (Auto) 0.5 (0.1-1.2) % Neut # (Auto) 7.18 H (1.56-6.13) K/mm3 Lymph # (Auto) 2.43 (1.18-3.74) K/mm3 [place] # (Auto) 0.91 H (0.24-0.36) K/mm3 Eos # (Auto) 0.08 (0.04-0.36) K/mm3 Baso # (Auto) 0.05 (0.01-0.08) K/mm3 Sodium 137 (136-145) mEq/L Potassium 4.2 (3.5-5.1) mEq/L Chloride 101 (98-107) mEq/L Carbon Dioxide 28 (21-32) mEq/L Anion Gap 12.2 (5-15) BUN 10 (7-18) mg/dL Creatinine 0.7 (0.55-1.02) mg/dL Est Cr Clr Drug Dosing 90.29 mL/min Estimated GFR (MDRD) > 60 (>60) mL/min BUN/Creatinine Ratio 14.3 (14-18) Glucose 90 (70-99) mg/dL Calcium 8.8 (8.5-10.1) mg/dL Total Bilirubin 0.2 (0.2-1.0) mg/dL AST 4 L (15-37) U/L ALT 16 (14-59) U/L Alkaline Phosphatase 76 (46-116) U/L Total Protein 6.8 (6.4-8.2) g/dl Albumin 3.8 (3.4-5.0) g/dl Globulin 3.0 gm/dL Albumin/Globulin Ratio 1.3 (1-2) Lipase 65 L (73-393) U/L HCG, Quant mIU/mL Urine Color Yellow (Yellow) Urine Appearance Clear (Clear) Urine pH 7.0 (5.0-8.0) Ur Specific [place] 1.010 (1.005-1.030) Urine Protein Negative (Negative) Urine Glucose (UA) Negative (Negative) Urine Ketones Negative (Negative) Urine Occult Blood Trace-intact H (Negative) Urine Nitrite Negative (Negative) Urine Bilirubin Negative (Negative) Urine Urobilinogen 0.2 (0.2-1.0) Ur Leukocyte Esterase Negative (Negative) Urine RBC 0-5 (0-5) /hpf Urine WBC 0-5 (0-5) /hpf Ur Squamous Epith Cells 0-5 (0-5) /hpf Urine Bacteria Rare (FEW) /hpf Urine Mucus Rare (FEW) /hpf 06/19/21 Range/Units 20:55 WBC (3.98-10.04) K/mm3 RBC (3.98-5.22) M/mm3 Hgb (11.2-15.7) gm/dl Hct (34.1-44.9) % MCV (79.4-94.8) fl MCH (25.6-32.2) pg MCHC (32.2-35.5) g/dl RDW Std Deviation (36.4-46.3) fL Plt Count (182-369) K/mm3 MPV (9.4-12.3) fl Neut % (Auto) (34.0-71.1) % Lymph % (Auto) (19.3-51.7) % [place] % (Auto) (4.7-12.5) % Eos % (Auto) (0.7-5.8) Baso % (Auto) (0.1-1.2) % Neut # (Auto) (1.56-6.13) K/mm3 Lymph # (Auto) (1.18-3.74) K/mm3 [place] # (Auto) (0.24-0.36) K/mm3 Eos # (Auto) (0.04-0.36) K/mm3 Baso # (Auto) (0.01-0.08) K/mm3 Sodium (136-145) mEq/L Potassium (3.5-5.1) mEq/L Chloride (98-107) mEq/L Carbon Dioxide (21-32) mEq/L Anion Gap (5-15) BUN (7-18) mg/dL Creatinine (0.55-1.02) mg/dL Est Cr Clr Drug Dosing mL/min Estimated GFR (MDRD) (>60) mL/min BUN/Creatinine Ratio (14-18) Glucose (70-99) mg/dL Calcium (8.5-10.1) mg/dL Total Bilirubin (0.2-1.0) mg/dL AST (15-37) U/L ALT (14-59) U/L Alkaline Phosphatase (46-116) U/L Total Protein (6.4-8.2) g/dl Albumin (3.4-5.0) g/dl Globulin gm/dL Albumin/Globulin Ratio (1-2) Lipase (73-393) U/L HCG, Quant < 1.0 mIU/mL Urine Color (Yellow) Urine Appearance (Clear) Urine pH (5.0-8.0) Ur Specific [place] (1.005-1.030) Urine Protein (Negative) Urine Glucose (UA) (Negative) Urine Ketones (Negative) Urine Occult Blood (Negative) Urine Nitrite (Negative) Urine Bilirubin (Negative) Urine Urobilinogen (0.2-1.0) Ur Leukocyte Esterase (Negative) Urine RBC (0-5) /hpf Urine WBC (0-5) /hpf Ur Squamous Epith Cells (0-5) /hpf Urine Bacteria (FEW) /hpf Urine Mucus (FEW) /hpf Meds: Medications Discontinued Medications Generic Name Dose Route Start Last Admin Trade Name Paty PRN Reason Stop Dose Admin Iopamidol 100 ml 06/19/21 20:40 06/19/21 20:40 Iopamidol 612 Mg/Ml 100 Ml Bottle IVPUSH 06/19/21 20:41 100 ml ONETIME ONE Administration Morphine Sulfate 4 mg 06/19/21 20:16 06/19/21 20:52 Morphine 4 Mg/Ml Syringe IVPUSH 06/19/21 20:17 4 mg ONETIME ONE Administration Ondansetron HCl 4 mg 06/19/21 20:16 06/19/21 20:50 Ondansetron 4 Mg/2 Ml Sdv IVPUSH 06/19/21 20:17 4 mg ONETIME ONE Administration Sodium Chloride 10 ml 06/19/21 20:40 06/19/21 20:40 Sodium Chloride 0.9% 10 Ml Sdv FLUSH 06/19/21 20:41 10 ml ONETIME ONE Administration Departure - Departure Time of Disposition: 00:00 Disposition: Home, Self-Care 01 Clinical Impression: Abdominal pain - Discharge Information Instructions: Abdominal Pain, Adult Referrals: PCP,None [Primary Care Provider] - Forms: ED Department Discharge Additional Instructions: Please follow-up with [employer]CIAL MARKET [employer]ER on Wednesday for further evaluation and possible repeat of your ultrasound. Should your pain worsen over the weekend or you develop fevers, please return to the emergency room. Otherwise, manage pain with ibuprofen and Tylenol at home. Sepsis Event Note (ED) - Focused Exam Vital Signs: Vital Signs Temp Pulse Resp BP Pulse Ox 06/19/21 19:51 37.3 C 96 20 144/94 H 99 - My Orders Last 24 Hours: My Active Orders 06/19/21 20:15 Abdomen Pelvis w Cont [CT] Stat 06/19/21 21:00 Pelvis Non OB Comp [US] Stat - Assessment/Plan Last 24 Hours: My Active Orders 06/19/21 20:15 Abdomen Pelvis w Cont [CT] Stat 06/19/21 21:00 Pelvis Non OB Comp [US] Stat Assessment:: Patient is 30-year-old female presented to the emergency room with a complaint of abdominal pain. ER course is unremarkable. Patient's vital signs remained stable. Differential diagnosis considered for this patient include appendicitis, ovarian torsion, endometritis, kidney stone. Laboratory studies and CT scan were performed. Laboratory studies largely unremarkable. Her CT demonstrates enlargement and thickening of the endometrium. No other findings. Subsequently, a ultrasound was ordered which demonstrates similar findings. No evidence of or ovarian torsion. With these findings, FINANCIAL MARKET DEALER on-call, Dr. Campbell was consulted. She recommended outpatient work-up. No other recommendations at this time. Patient was given appropriate return precautions. Discharged in stable condition.
--- NOTE | 2021-06-20 06:01 | CT ---
CT abdomen and pelvis Technique: Multiple axial sections were obtained from above the dome of the diaphragm inferiorly through the pubic symphysis. Intravenous contrast was utilized. Delayed images were obtained through the bladder. Reconstructed coronal and sagittal images were obtained. Comparison: No prior abdominal imaging is available. Findings: Visualized lung bases show nothing acute. Liver contains no focal parenchymal abnormality. Spleen size is normal. Gallbladder contains no calcified gallstones. Adrenal glands show no nodule. Pancreas shows no discrete abnormality. Kidneys show symmetric contrast enhancement with no hydronephrosis or mass. Abdominal aorta shows no aneurysm. No retroperitoneal adenopathy or mesenteric abnormalities are seen. Endometrium is somewhat more prominent than usually seen. Uterus is slightly prominent in size. Small amount of free fluid is seen within the pelvis which is most likely physiologic. Cyst is noted within the right ovary measuring 2.1 cm which is likely incidental. Appendix is seen which is normal in size. Delayed images show contrast within the bladder. Bone window settings were reviewed which show nothing acute. Impression: 1. Uterus slightly prominent in size with mildly prominent endometrial lining. Please see subsequent pelvic ultrasound for further discussion. 2. Small 2.1 cm cyst within the right ovary. 3. Free fluid within the pelvis most likely physiologic. Diagnostic code #3 I agree with preliminary report from [facility], finalized on 06/19/21, 10:25 PM AUTOMATIC PROFILE SHAPER OPERATOR, code 1
--- NOTE | 2021-06-20 06:02 | US ---
Pelvic ultrasound: Multiple real-time images were obtained transabdominally. Comparison: No prior pelvic ultrasound is available. Uterus is anteverted. Endometrium is thickened at 2.4 cm. Endometrium shows an incidental small cystic area measuring 5 mm. Slight free fluid is seen within the pelvis. 2.6 cm cyst is noted within the right ovary which appears simple. Left ovary appears normal. Measurements: Right ovary: 4.4 x 2.8 x 2.8 cm Left ovary: 3.2 x 2.0 x 2.6 cm Uterus: Length 9.8 cm, AP height 6.2 cm, transverse width 7.7 cm Impression: 1. Thickened endometrium with differential including blood products and clot but cannot exclude retained products of conception. 2. Cyst which appears simple within the right ovary measuring 2.6 cm. 3. Small amount of free fluid within the pelvis which is likely physiologic. Diagnostic code #3 I agree with preliminary report from [facility], finalized on 06/19/21, 10:55 PM ACCOUNTING RECRUITER, code 1
== END 2021-06-20 00:13 | disposition home or self-care (01) ==
LOC: JD.ED 19:23
DX: R10.31 Right lower quadrant pain (principal); Z91.048 Other nonmedicinal substance allergy status
CPT/HCPCS: 36415; 74177; 76856; 80053; 81001; 83690; 84702; 85025; 96374; 96375; 99284; J2270; J2405; Q9967

== ENCOUNTER 2022-08-30 10:17 | Emergency (ER) | payer MEDICAID ==
[2022-08-30] MEDS ORDERED: Sodium Chloride 0.9% 1,000 ML IV ONE (11:09)
[2022-08-30] MEDS ORDERED: Ondansetron 4 MG/2 ML SDV IVPUSH ONE (11:09)
[2022-08-30] MEDS ORDERED: Ketorolac 30 MG/ML SDV IVPUSH ONE (11:09)
[2022-08-30 11:49] LABS: CORONAVIRUS COVID-19 NAA NEGATIVE (NEGATIVE)
[2022-08-30] MEDS ORDERED: Metoclopramide 10 MG/2 ML SDV IVPUSH ONE (11:56)
[2022-08-30 13:39] VITALS: BP 97/62; PULSE 128
== END 2022-08-30 13:35 | disposition home or self-care (01) ==
LOC: JD.ED 10:17
DX: R11.2 Nausea with vomiting, unspecified (principal); R19.7 Diarrhea, unspecified; Z91.048 Other nonmedicinal substance allergy status; Z79.899 Other long term (current) drug therapy; Z20.822 Contact with and (suspected) exposure to COVID-19
CPT/HCPCS: 0241U; 36415; 80053; 83735; 85025; 96361; 96374; 96375; 99284; J1885; J2405; J2765; J7030

== ENCOUNTER 2023-09-20 11:59 | Emergency (ER) | payer MEDICAID ==
[2023-09-20 14:12] LABS: BASOPHILS PERCENT AUTO 0.2 % (0.0-1.0); HEMATOCRIT 35.4 % (37.0-47.0); IMMATURE GRAN ABSOLUTE AUTO 0.05 K/mm3 (0.00-0.05); IMMATURE GRAN PERCENT AUTO 0.4 % (0.0-0.4); LYMPHOCYTES ABSOLUTE AUTO 0.5 K/mm3 (1.0-4.8); LYMPHOCYTES PERCENT AUTO 3.8 % (24.0-44.0); MEAN CORPUSCULAR HEMOGLOBIN 22.6 pg (28.0-32.0); MEAN CORPUSCULAR HGB CONC 31.1 g/dl (32.0-36.0); MEAN CORPUSCULAR VOLUME 72.7 fl (83.0-99.0); MEAN PLATELET VOLUME 10.5 fl (9.4-12.3); MONOCYTES ABSOLUTE AUTO 0.5 K/mm3 (0.0-0.8); MONOCYTES PERCENT AUTO 3.9 % (0.0-8.0); NEUTROPHILS ABSOLUTE AUTO 12.2 K/mm3 (1.8-7.7); NEUTROPHILS PERCENT AUTO 91.7 % (41.0-71.0); PLATELET COUNT,PLT 373 K/mm3 (150-400); RED BLOOD CELL COUNT 4.87 M/mm3 (4.10-5.30)
[2023-09-20] MEDS: Ketorolac 30 MG/ML SDV IVPUSH ONE (14:15)
[2023-09-20] MEDS: Sodium Chloride 0.9% 1,000 ML IV ONE ×2 (14:19→16:54)
[2023-09-20 14:36] LABS: A/G RATIO 1.1 (1-2); ALANINE AMINOTRANSFERASE,ALT 16 U/L (14-59); ALBUMIN 4.3 g/dl (3.4-5.0); ALKALINE PHOSPHATASE 69 U/L (46-116); ANION GAP 15.6 (5-15); ASPARTATE AMNIOTRANSFERASE,AST 12 U/L (15-37); BILIRUBIN TOTAL 0.5 mg/dL (0.2-1.0); BLOOD UREA NITROGEN,BUN 12 mg/dL (7-18); BUN/CREATININE RATIO 17.1 (14-18); CALCIUM 8.8 mg/dL (8.5-10.1); CARBON DIOXIDE,CO2 26 mEq/L (21-32); CHLORIDE,CL 102 mEq/L (98-107); CREATININE 0.7 mg/dL (0.55-1.02); EST CRCL DRUG DOSING (CG) 83.64 mL/min; ESTIMATED GFR 119 mL/min (>60); GLUCOSE RANDOM 112 mg/dL (70-99); LIPASE 27 U/L (16-77); POTASSIUM,K 3.6 mEq/L (3.5-5.1); PROTEIN TOTAL,TP 8.2 g/dl (6.4-8.2); SODIUM,NA 140 mEq/L (136-145)
[2023-09-20 14:37] LABS: HCG QUANTITATIVE < 1.0 mIU/mL
[2023-09-20] MEDS: HYDROmorphone 0.5 MG/0.5 ML Syringe IVPUSH ONE ×2 (15:06→16:45)
[2023-09-20] MEDS: Sodium Chloride 0.9% 10 ML Syringe FLUSH ONE (15:08)
[2023-09-20] MEDS: Iopamidol 612 MG/ML 100 ML Bottle IVPUSH ONE (15:26)
[2023-09-20] MEDS: Metoclopramide 10 MG/2 ML SDV IVPUSH ONE (16:25)
[2023-09-20] MEDS: Famotidine 20 MG/2 ML SDV IVPUSH ONE (16:47)
[2023-09-20 18:39] LABS: APPEARANCE,URINE CLEAR (Clear); BILIRUBIN,URINE NEGATIVE (Negative); COLOR,URINE YELLOW (Yellow); GLUCOSE,URINE NEGATIVE (Negative); KETONES,URINE TRACE (Negative); LEUKOCYTE ESTERASE,URINE NEGATIVE (Negative); NITRITE,URINE NEGATIVE (Negative); OCCULT BLOOD,URINE TRACE-INTACT (Negative); PH,URINE 5.5 (5.0-8.0); PROTEIN,URINE NEGATIVE (Negative); UROBILINOGEN,URINE 0.2 (0.2-1.0)
[2023-09-20] MEDS: Ondansetron 4 MG/2 ML SDV IVPUSH ONE (18:55)
[2023-09-20 18:59] VITALS: BP 111/68; PULSE 108
[2023-09-20 19:22] LABS: BACTERIA,URINE MODERATE /hpf (FEW); MUCUS,URINE FEW /hpf (FEW); RBC,URINE 0-5 /hpf (0-5); WBC,URINE 0-5 /hpf (0-5)
== END 2023-09-20 19:24 | disposition home or self-care (01) ==
LOC: JD.ED 11:59
DX: K52.9 Noninfective gastroenteritis and colitis, unspecified (principal); Z91.048 Other nonmedicinal substance allergy status
CPT/HCPCS: 36415; 74177; 80053; 83690; 84702; 85025; 96361; 96374; 96375; 96376; 99284; J1170; J1885; J2405; J2765; J3490; J7030; Q9967; 81001